=== PATIENT | male | born 1955 | race American Indian/Alaskan Native ===

== ENCOUNTER 2017-01-25 07:46 | Outpatient (CLI) | payer OTHER ==
--- NOTE | 2017-01-25 12:03 | Magnetic Resonance Report ---
MRI CERVICAL SPINE WITHOUT CONTRAST: 01/25/17 CLINICAL: Cervical radiculopathy. TECHNIQUE: Sagittal T1,T2 and STIR and axial gradient T2* sequences on a 1.5 Zara magnet. FINDINGS:Normal vertebral body alignment through T3. Mild decreased height of the C6 vertebral body. The rest of the bodies are normal in height. Mild disc space narrowing at C5-6 and C6-7 with small anterior and posterior osteophytes at those levels. The overall marrow signal is normal. No bone contusion or fracture. The spinal cord is normal size with normal signal. Cerebellar tonsils are in normal position. C2-3: Intact. C3-4:Small broad-based central disc protrusion producing partial effacement of the thecal sac but no cord compression. No neural foraminal stenosis. C4-5: Intact. C5-6:Small posterior central disc-osteophyte producing partial effacement of the thecal sac but no cord compression. A large left uncal osteophyte and large left foraminal osteophyte produce severe left neural foraminal stenosis. C6-7:Small posterior central disc-osteophyte producing partial effacement of the thecal sac no cord compression. Small right uncal osteophyte and mild right neural foraminal narrowing. C7-T1:Intact. IMPRESSION: 1. Degenerative disc disease at C5-6 and C6-7. 2. Large C5-6 left uncal and foraminal osteophytes producing severe left neural foraminal stenosis. 3. C3-4 degenerative disc disease with a small broad-based central disc protrusion. 4. No cord lesion.
== END 2017-01-25 07:47 | disposition home or self-care (01) ==
LOC: SPVIMAG 07:46
PROVIDERS: ATTEND Family Medicine Adult Medicine
DX: M48.02 Spinal stenosis, cervical region (principal); M47.22 Other spondylosis with radiculopathy, cervical region; M50.122 Cervical disc disorder at C5-C6 level with radiculopathy; M50.123 Cervical disc disorder at C6-C7 level with radiculopathy
CPT/HCPCS: 72141